=== PATIENT | female | born 1935 | race Caucasian/White ===

== ENCOUNTER 2023-04-15 10:53 | Emergency (ER) | payer OTHER, BC ==
[2023-04-15 11:00] VITALS: PULSE 70; TEMP 97.1; BMI 35.2
[2023-04-15] MEDS ORDERED: SILVER NITRATE 75% APPLIC STCK 1 PKT EACH TP ONE (12:04)
[2023-04-15] MEDS ORDERED: SILVER SULFADIAZINE 1% TOP CREAM 50 GM JAR TP ONE (12:21)
[2023-04-15] MEDS ORDERED: SILVER NITRATE 75% APPLIC STCK 1 PKT EACH ONE (12:22)
[2023-04-15] MEDS ORDERED: LIDOCAINE 1%/EPI 1:100000 (20 ML MULTI DOSE VIAL) IJ ONE (12:30)
[2023-04-15] MEDS ORDERED: TRANEXAMIC ACID 1000 MG/10 ML VIAL IVPB ONE (12:32)
[2023-04-15] MEDS ORDERED: LIDOCAINE 1%/EPI 1:100000 (50 ML MULTI DOSE VIAL) ONE (12:36)
[2023-04-15] MEDS ORDERED: TRANEXAMIC ACID 1000 MG/10 ML VIAL ONE (12:36)
[2023-04-15] MEDS ORDERED: CEPHALEXIN MONOHYDRATE 500 MG CAPSULE (UD) PO ONE (13:01)
[2023-04-15 13:26] VITALS: BP 160/72; RESP 18
== END 2023-04-15 14:00 | disposition home or self-care (01) ==
LOC: JER 10:53
PROC: 3E033GC Introduction of Other Therapeutic Substance into Peripheral Vein, Percutaneous Approach (ICD-10-PCS; principal; 2023-04-15)
DX: R04.0 Epistaxis (principal)
CPT/HCPCS: 99284-25

== ENCOUNTER 2023-05-06 06:43 | Inpatient (IN) | payer OTHER, BC ==
[2023-05-06] MEDS ORDERED: ACETAMINOPHEN 325 MG TABLET (FP) ONE (08:07)
[2023-05-06] MEDS: ACETAMINOPHEN 325 MG TABLET (FP) PO ONE (08:12)
[2023-05-06] MEDS ORDERED: morphine SULFATE 4 MG/ML VIAL ONE (10:39)
[2023-05-06] MEDS: morphine SULFATE 4 MG/ML VIAL IVPUSH ONE (10:59)
[2023-05-06 11:08] LABS: BASO % 0.4 % (0-2.0); EOS % 0.3 % (0-4.5); HEMATOCRIT 38.8 % (32.4-45.2); HEMOGLOBIN 13.5 GM/dL (10.7-15.3); MCHC 34.7 g/dl (32.0-36.0); MEAN CELL VOLUME 92.2 fl (80-96); MEAN PLT VOLUME 7.9 fl (7.5-11.1); MONO % 6.2 % (3.8-10.2); NEUT % 87.1 % (42.8-82.8); PLATELET COUNT 331 10^3/uL (134-434); RBC 4.21 M/mm3 (3.60-5.2); RDW 13.8 % (11.6-15.6); WHITE BLOOD COUNT 18.9 K/mm3 (4.0-10.0)
[2023-05-06 11:12] LABS: INR 1.22 (0.83-1.09); PROTHROMBIN TIME (PATIENT) 14.1 SEC (9.7-13.0)
[2023-05-06 11:15] LABS: ACTIVATED PTT 28.1 SECONDS (25.2-36.5)
[2023-05-06 11:29] LABS: POTASSIUM 3.8 mmol/L (3.5-5.1)
[2023-05-06 11:30] LABS: CALCIUM 9.9 mg/dL (8.5-10.1)
[2023-05-06 11:31] LABS: ALBUMIN 3.6 g/dl (3.4-5.0); BLOOD UREA NITROGEN 12.3 mg/dL (7-18)
[2023-05-06 11:34] LABS: CREATININE 0.7 mg/dL (0.55-1.3)
[2023-05-06 11:36] LABS: BILIRUBIN,TOTAL 0.8 mg/dL (0.2-1); TOT PROT 7.1 g/dl (6.4-8.2)
[2023-05-06 11:45] LABS: EPI CELLS 14 /uL (0-25.1); HYALINE CASTS 1 /uL (0-3.1); PH,URINE 5.5 (5.0-8.0); URINE APPEARANCE CLEAR; URINE BACTERIA 40 /uL (0-1359); URINE BILIRUBIN NEGATIVE (NEGATIVE); URINE COLOR YELLOW; URINE GLUCOSE (UA) NEGATIVE (NEGATIVE); URINE KETONE NEGATIVE (NEGATIVE); URINE LEUK ESTERASE TRACE (NEGATIVE); URINE NITRITE NEGATIVE (NEGATIVE); URINE PROTEIN NEGATIVE (NEGATIVE); URINE RBC 9 /uL (0-23.9); URINE UROBILINOGEN 0.2 mg/dL (0.2-1.0); URINE WBC 16 /uL (0-25.8)
[2023-05-06] MEDS ORDERED: traMADol HCL 50 MG TABLET ONE (13:20)
[2023-05-06] MEDS: RAMIPRIL 5 MG CAPSULE PO SCH (13:35)
[2023-05-06] MEDS: traMADol HCL 50 MG TABLET PO SCH (13:35)
[2023-05-06 15:38] VITALS: RESP 18; BMI 30.4
[2023-05-07] MEDS: ACETAMINOPHEN 325 MG TABLET (FP) PO PRN (09:18)
[2023-05-07] MEDS: FOLIC ACID 1 MG TABLET (FP) PO SCH (09:23)
[2023-05-07 10:17] LABS: BASO % 0.6 % (0-2.0); EOS % 2.5 % (0-4.5); HEMATOCRIT 35.6 % (32.4-45.2); HEMOGLOBIN 12.4 GM/dL (10.7-15.3); LYMPH % 10.6 % (8-40); MCH 32.4 pg (25.7-33.7); MCHC 34.9 g/dl (32.0-36.0); MEAN CELL VOLUME 92.6 fl (80-96); MEAN PLT VOLUME 8.1 fl (7.5-11.1); MONO % 8.4 % (3.8-10.2); NEUT % 77.9 % (42.8-82.8); PLATELET COUNT 266 10^3/uL (134-434); RBC 3.85 M/mm3 (3.60-5.2); RDW 13.9 % (11.6-15.6)
[2023-05-07 10:38] LABS: POTASSIUM 3.4 mmol/L (3.5-5.1)
[2023-05-07 10:40] LABS: ALBUMIN 3.2 g/dl (3.4-5.0); CALCIUM 9.1 mg/dL (8.5-10.1); MAGNESIUM 1.9 mg/dL (1.8-2.4)
[2023-05-07 10:41] LABS: BLOOD UREA NITROGEN 5.7 mg/dL (7-18)
[2023-05-07 10:43] LABS: PHOSPHOROUS 2.4 mg/dL (2.5-4.9)
[2023-05-07 10:44] LABS: CREATININE 0.6 mg/dL (0.55-1.3)
[2023-05-07 10:45] LABS: BILIRUBIN,TOTAL 1.3 mg/dL (0.2-1); TOT PROT 6.1 g/dl (6.4-8.2)
[2023-05-08] MEDS: amLODIPine BESYLATE 5 MG TABLET (FP) PO SCH (09:15)
[2023-05-08] MEDS ORDERED: FOLIC ACID 1 MG TABLET (FP) PO SCH (10:00)
[2023-05-09] MEDS: SENNOSIDES 8.6MG TABLET (FP) PO PRN (05:42)
[2023-05-09 13:03] LABS: POTASSIUM 4.4 mmol/L (3.5-5.1)
[2023-05-09 13:07] LABS: BLOOD UREA NITROGEN 8.7 mg/dL (7-18); CALCIUM 9.6 mg/dL (8.5-10.1)
[2023-05-09 13:10] LABS: CREATININE 0.7 mg/dL (0.55-1.3)
[2023-05-09] MEDS ORDERED: METHOTREXATE SODIUM IM ONE (17:25)
[2023-05-10 05:10] VITALS: BP 173/75; PULSE 72; TEMP 97.1
== END 2023-05-10 18:10 | DRG 536 ==
LOC: JER 06:43 → JERBED 10:37 → J6S 14:52
PROVIDERS: ADMIT Internal Medicine; ATTEND Internal Medicine
DX: S32.509A Unspecified fracture of unspecified pubis, initial encounter for closed fracture (principal); D72.829 Elevated white blood cell count, unspecified; I10 Essential (primary) hypertension; M06.9 Rheumatoid arthritis, unspecified; R26.2 Difficulty in walking, not elsewhere classified; E66.9 Obesity, unspecified; Z68.30 Body mass index [BMI] 30.0-30.9, adult; W19.XXXA Unspecified fall, initial encounter; Y93.9 Activity, unspecified; Y92.89 Other specified places as the place of occurrence of the external cause; Y99.9 Unspecified external cause status
CPT/HCPCS: 0241U-QW; 36415; 70450-TC; 71045-TC-FY; 72125-TC; 72170-TC-FY; 72192-TC; 73502-TC-LT-FY; 73502-TC-RT-FY; 80048; 80053; 81003; 82962; 83735; 84100; 84443; 85025; 85610; 85730; 87040; 87086; 93005; 93010; 97116-GP; 97162-GP; 99285-25

== ENCOUNTER 2024-02-26 12:50 | Emergency (ER) | payer OTHER, BC ==
[2024-02-26 13:13] VITALS: TEMP 98.6; BMI 34.2
[2024-02-26] MEDS: MINERAL OIL ENEMA 133 ML ENEMA RC ONE (13:39)
[2024-02-26] MEDS: SODIUM PHOSPHATE/NA BIPHOS 133 ML ENEMA PR ONE (13:39)
[2024-02-26 14:45] VITALS: BP 128/69; PULSE 71; RESP 16
== END 2024-02-26 14:58 | disposition home or self-care (01) ==
LOC: FER 12:50
DX: K59.00 Constipation, unspecified (principal)
CPT/HCPCS: 82272; 99283-25